=== PATIENT | female | born 1965 | race Caucasian/White ===

== ENCOUNTER 2017-03-03 04:33 | Emergency (ER) | payer SELFPAY ==
--- NOTE | 2017-03-03 04:59 | Emergency Department Record ---
History of Present Illness - General Chief complaint: Eye Problem Stated complaint: LEFT EYE MASS PROBLEMS Time Seen by Provider: 03/03/17 04:36 Source: Patient Mode of Arrival: Ambulatory Limitations: No limitations - History of Present Illness Initial comments: 52 yo female from [place] presents with pain behind her left eye. She states she has a known mass that was first found 20 years ago. The mass causes fairly constant pain that has been ongoing for years. She states it is half dollar size. The pain is typically worse at night. The pain has been worse the last month. She was not able to sleep tonight. She flew to [place] in the last week for a family . The pain intensified at that time. The pain is a constant ache behind the eye. She states in [place] she was supposed to have yearly MRI's. She was not always able to do this. Her last MRI was in the last 2 years in [facility]. She states she has daily migraines. She requests no narcotics as she is a recovering addict. Her mother has a history of a meningioma. chief complaint: Eye pain, Other -: Year(s) Onset Description: Gradual Location: Left eye Place: Home If Injury: None Severity: Severe If Pain, Quality: Aching Consistency: Constant Context: Other (Possible masss) Associated Symptoms: Headache Treatments Prior to Arrival: Ice - Related Data Previous Rx's Medication Instructions Recorded Amoxicillin 500Mg Capsule [Amoxil] 500 mg PO TID #30 tab 03/03/17 Budesonide [Rhinocort Allergy] 5 ml NS BID #1 spray.pump 03/03/17 Allergies Allergy/AdvReac Type Severity Reaction Status Date / Time prochlorperazine Allergy PT UNSURE Verified 03/03/17 04:46 [From Compazine] OF REACTION Review of Systems Constitutional: Denies: Chills, Fever, Malaise, Weakness Eyes: Reports: Eye pain, Photophobia. Denies: Eye discharge, Vision change ENT: Denies: Congestion, Throat pain Respiratory: Denies: Cough, Dyspnea, Hemoptysis, Stridor, Wheezes Cardiovascular: Denies: Chest pain, Palpitations, Syncope Endocrine: Denies: Fatigue, Polydipsia, Polyuria Gastrointestinal: Reports: Nausea, Vomiting. Denies: Abdominal pain, Constipation, Diarrhea Genitourinary: Denies: Dysuria Skin: Denies: Bruising, Change in color, Rash Neurological: Reports: Headache. Denies: Confusion, Numbness, Tingling, Tremors , Vertigo, Weakness Psychiatric: Denies: Anxiety Hematological/Lymphatic: Denies: Blood Clots, Easy bleeding, Easy bruising, Swollen glands Physical Exam - General General Appearance: Alert, Oriented x3, Cooperative, No acute distress Limitations: No limitations - Head Head exam: Atraumatic, Normocephalic, Normal inspection - Eye Eye exam: Normal appearance, PERRL, EOMI. negative: Conjunctival injection, Nystagmus, Periorbital swelling, Periorbital tenderness, Scleral icterus - ENT ENT exam: Normal exam, Mucous membranes moist, Normal orophraynx Ear exam: Normal external inspection Nasal Exam: Normal inspection Mouth exam: Normal external inspection - Neck Neck exam: Normal inspection, Full ROM. negative: Meningismus, Tenderness - Respiratory Respiratory exam: Normal lung sounds bilaterally. negative: Respiratory distress - Cardiovascular Cardiovascular Exam: Regular rate, Normal rhythm, Normal heart sounds Peripheral Pulses: 2+: Radial (R), Radial (L) - GI/Abdominal GI/Abdominal exam: Soft. negative: Tenderness - Rectal Rectal exam: Deferred - exam: Deferred - Extremities Extremities exam: Normal inspection, Full ROM, Normal capillary refill. negative: Tenderness - Back Back exam: Reports: Normal inspection, Full ROM. Denies: Muscle spasm, Rash noted, Tenderness - Neurological Neurological exam: Alert, CN II-XII intact, Normal gait, Oriented X3. negative : Altered, Motor sensory deficit - Psychiatric Psychiatric exam: Normal affect, Normal mood. negative: Agitated, Anxious - Skin Skin exam: Dry, Intact, Normal color, Warm Course - Reevaluation(s) Reevaluation #1: The pain has resolved prior to medication of the patient She states this is a typical pattern but tonight the pain lasted longer The pain comes on and then will spontaneously stop This has been the pattern for several years. 03/03/17 05:18 03/03/17 05:19 The patient is unsure where prior imaging was performed She states it could be [facility] or [facility] in [facility] was called multiple times without medical record responding. The nurse steel fabricating supervisor was not responsive as well. 03/03/17 05:30 [facility] does not have any records on the patient [facility] records continues to not respond. 03/03/17 05:[address] scan report from [facility] demonstrated no mass, hemorrhage or obstructive hydrocephalus. There is patchy paranasal sinus disease. left frontoethmoidal recess as well as the left maxillary sinus I discussed the CT findings. No acute mass or emergent process identified for her chronic pain. Given the sinus involvement she may benefit for antibiotics and steroids She will be provided a copy to take for follow up in [place] Disposition Disposition: Discharge Clinical Impression: Headache, Sinusitis Disposition: Home, Self-Care Condition: (1) Good Instructions: Sinusitis (ED) Additional Instructions: Call for close follow up when you return to [place] Return or seek medical care if the pain returns or any new concerns Prescriptions: Amoxicillin 500Mg Capsule [Amoxil] 500 mg PO TID #30 tab Budesonide [Rhinocort Allergy] 5 ml NS BID #1 spray.pump Forms: Patient Portal Access Time of Disposition: 05:37 Quality - Quality Measures Quality Measures: N/A - Blood Pressure Screening Does Patient Have Any of the Following: No Blood Pressure Classification: Pre-Hypertensive BP Reading Systolic Measurement: 116 Diastolic Measurement: 82 Screening for High Blood Pressure: < Pre-Hypertensive BP, F/U Documented > [ G8950] Pre-Hypertensive Follow-up Interventions: Referral to alternative/primary care provider.
[2017-03-03] MEDS ORDERED: METOCLOPRAMIDE HCL 10 MG/2 ML VIAL IVP ONE (05:00)
[2017-03-03] MEDS ORDERED: DIPHENHYDRAMINE HCL IV 50 MG/ML VIAL IVP ONE (05:00)
[2017-03-03] MEDS ORDERED: 0.9 % SODIUM CHLORIDE 1,000 ML BAG IV ONE (05:00)
[2017-03-03] MEDS ORDERED: ACETAMINOPHEN 1,000 MG/100 ML BTL IVPB ONE (05:00)
--- NOTE | 2017-03-04 07:43 | CT SCAN REPORT ---
EXAM: CT OF THE BRAIN WITHOUT CONTRAST HISTORY: HEADACHE. TECHNIQUE: CT of the brain without contrast was obtained. Comparison: None. FINDINGS: The globes are intact. Mucosal thickening of the maxillary sinuses, ethmoid air cells, and sphenoid sinuses. No displaced or depressed skull fracture. No intra or extraaxial hemorrhage. CT is limited for the evaluation of acute infarct. No CT evidence for large or territorial acute infarct. No mass, mass effect, or midline shift. IMPRESSION: 1. NEGATIVE FOR ACUTE INTRACRANIAL ABNORMALITY. 2. PARANASAL SINUSITIS. JOB NUMBER: [id number] MTDD
== END 2017-03-03 05:46 | disposition home or self-care (01) ==
LOC: ER 04:33
DX: J01.00 Acute maxillary sinusitis, unspecified (principal); R51 Headache; H57.12 Ocular pain, left eye
CPT/HCPCS: 70450; 96374; 96375; 99284

== ENCOUNTER 2017-07-04 02:13 | Emergency (ER) | payer SELFPAY ==
[2017-07-04] MEDS: IPRATROPIUM/ALBUTEROL (0.5MG/3MG) NEB INH ONE (02:36)
[2017-07-04 02:47] LABS: INFLUENZA A NEGATIVE (NEGATIVE); INFLUENZA B NEGATIVE (NEGATIVE)
--- NOTE | 2017-07-04 02:51 | Emergency Department Record ---
History of Present Illness - General Chief Complaint: Cough Stated Complaint: COUGH Time Seen by Provider: 07/04/17 02:22 Source: Patient Mode of Arrival: Ambulatory Limitations: No limitations - History of Present Illness Initial Comments: pt has had 2 days of coughing, fever, sweats, chills, congestion Complaint: Cough, Fever, Nasal congestion, Rhinorrhea, Sore throat Onset/Timin -: Days(s) Severity: Mild Consistency: Constant Improves With: Nothing Context: Sick contacts Associated Symptoms: Chills, Cough, Fever, Nasal congestion, Rhinorrhea, Sore throat - Related Data Previous Rx's Medication Instructions Recorded Azithromycin [Zithromax] 250 mg PO DAILY #4 tab 07/04/17 Benzonatate [Tessalon] 1 cap PO Q8H PRN #14 cap 07/04/17 Allergies Allergy/AdvReac Type Severity Reaction Status Date / Time prochlorperazine Allergy PT UNSURE Verified 03/03/17 04:46 [From Compazine] OF REACTION Travel Screening - Travel/Exposure Within Last 30 Days Have you traveled within the last 30 days?: No - Travel/Exposure Within Last Year Have you traveled outside the [place] in the last year?: No - Additonal Travel Details Have you been exposed to anyone with a communicable illness?: No - Travel Symptoms Symptom Screening: None Review of Systems Reviewed: No additional complaints except as noted below Constitutional: Reports: As per HPI. Denies: Chills, Fever, Malaise, Night sweats, Weakness, Weight change Eyes: Reports: As per HPI. Denies: Eye discharge, Eye pain, Photophobia, Vision change ENT: Reports: As per HPI, Congestion, Throat pain. Denies: Dental pain, Ear pain, Epistaxis, Hearing loss Respiratory: Reports: As per HPI, Cough. Denies: Dyspnea, Hemoptysis, Stridor, Wheezes Cardiovascular: Reports: As per HPI. Denies: Arrhythmia, Chest pain, Dyspnea on exertion, Edema, Murmurs, Orthopnea, Palpitations, Paroxysmal nocturnal dyspnea, Rheumatic Fever, Syncope Endocrine: Reports: As per HPI. Denies: Fatigue, Heat or cold intolerance, Polydipsia, Polyuria Gastrointestinal: Reports: As per HPI. Denies: Abdominal pain, Constipation, Diarrhea, Hematemesis, Hematochezia, Melena, Nausea, Vomiting Genitourinary: Reports: As per HPI. Denies: Abnormal menses, Discharge, Dyspareunia, Dysuria, Frequency, Hematuria, Incontinence, Retention, Urgency Musculoskeletal: Reports: As per HPI. Denies: Arthralgia, Back pain, Gout, Joint swelling, Myalgia, Neck pain Skin: Reports: As per HPI. Denies: Bruising, Change in color, Change in hair/ nails, Lesions, Pruritus, Rash Neurological: Reports: As per HPI. Denies: Abnormal gait, Confusion, Headache, Numbness, Paresthesias, Seizure, Tingling, Tremors, Vertigo, Weakness Psychiatric: Reports: As per HPI. Denies: Anxiety, Auditory hallucinations, Depression, Homicidal thoughts, Suicidal thoughts, Visual hallucinations Hematological/Lymphatic: Reports: As per HPI. Denies: Anemia, Blood Clots, Easy bleeding, Easy bruising, Swollen glands Past Medical History - SOCIAL HISTORY Smoking Status: Former smoker Alcohol Use: None Drug Use: None - RESPIRATORY Hx Respiratory Disorders: No - CARDIOVASCULAR Hx Cardio Disorders: No - NEURO Hx Neuro Disorders: Yes Hx Headaches: Yes - GI Hx GI Disorders: No - Hx Genitourinary Disorders: No - ENDOCRINE Hx Endocrine Disorders: No - MUSCULOSKELETAL Hx Musculoskeletal Disorders: No - PSYCH Hx Psych Problems: No - HEMATOLOGY/ONCOLOGY Hx Hematology/Oncology Disorders: No Family Medical History Any Significant Family History?: No Physical Exam - General General Appearance: Alert, Oriented x3, Cooperative, Mild distress - Head Head exam: Normal inspection - Eye Eye exam: Normal appearance, PERRL, EOMI Pupils: Normal accommodation - ENT ENT exam: Normal exam, Mucous membranes moist, Normal external ear exam, Normal orophraynx Ear exam: Normal external inspection. negative: External canal tenderness Nasal Exam: Discharge. negative: Sinus tenderness Mouth exam: Normal external inspection, Tongue normal Teeth exam: Normal inspection. negative: Dental caries Throat exam: Tonsillar erythema. negative: Tonsillar exudate - Neck Neck exam: Normal inspection, Full ROM. negative: Tenderness - Respiratory Respiratory exam: negative: Respiratory distress - Cardiovascular Cardiovascular Exam: Normal rhythm, Normal heart sounds, Systolic murmur, Tachycardia - GI/Abdominal GI/Abdominal exam: Soft, Normal bowel sounds. negative: Tenderness - Rectal Rectal exam: Deferred - exam: Deferred - Extremities Extremities exam: Normal inspection, Full ROM, Normal capillary refill. negative: Tenderness - Back Back exam: Reports: Normal inspection, Full ROM. Denies: Muscle spasm, Rash noted, Tenderness - Neurological Neurological exam: Alert, CN II-XII intact, Normal gait, Oriented X3 - Psychiatric Psychiatric exam: Normal affect, Normal mood - Skin Skin exam: Dry, Intact, Normal color, Warm Course Vital Signs 07/04/17 07/04/17 02:15 02:36 Temperature 98.8 F Pulse Rate 125 H 86 Respiratory 20 16 Rate Blood Pressure 111/89 Pulse Ox 97 Disposition Disposition: Discharge Clinical Impression: Heart murmur Pneumonia Qualifiers: Pneumonia type: due to unspecified organism Laterality: bilateral Lung location : lower lobe of lung Qualified Code(s): J18.1 - Lobar pneumonia, unspecified organism Disposition: Home, Self-Care Condition: (1) Good Instructions: Pneumonitis (ED) Additional Instructions: follow up with family doctor. return sooner if worse. tylenol and motrin as needed. Prescriptions: Azithromycin [Zithromax] 250 mg PO DAILY #4 tab Benzonatate [Tessalon] 1 cap PO Q8H PRN #14 cap PRN Reason: Cough Forms: Patient Portal Access, Return to Work/School Quality - Quality Measures Quality Measures: N/A - Blood Pressure Screening Does Patient Have Any of the Following: No Blood Pressure Classification: Pre-Hypertensive BP Reading Systolic Measurement: 111 Diastolic Measurement: 89 Screening for High Blood Pressure: < Pre-Hypertensive BP, F/U Documented > [ G8950] Pre-Hypertensive Follow-up Interventions: Follow-up with rescreen every year.
[2017-07-04] MEDS: AZITHROMYCIN 500 MG TABLET PO ONE (03:06)
[2017-07-04] MEDS: BENZONATATE 100 MG CAPSULE PO ONE (03:07)
--- NOTE | 2017-07-05 09:07 | RADIOLOGY REPORT ---
EXAM: CHEST, TWO VIEWS HISTORY: COUGH AND SHORTNESS OF BREATH FOR TWO DAYS. TECHNIQUE: PA and lateral views of the chest were obtained. Comparison: None. FINDINGS: Mild torsion of the aorta. The heart size is within normal limits. The lungs appear expanded with no definite acute infiltrate seen. No pleural effusion or pneumothorax evident. Mild spurring in the spine. Faint nodular density overlying the right base on the frontal view not identified as a nodule on the lateral view and may just be a prominent nipple shadow. This could be confirmed with follow-up PA and bilateral oblique views with nipple markers applied if clinically warranted. IMPRESSION: 1. MILD TORSION OF THE AORTA. 2. NO ACUTE INFILTRATE EVIDENT. 3. FAINT NODULAR DENSITY RIGHT BASE ON THE FRONTAL VIEW IS PROBABLY JUST A PROMINENT NIPPLE SHADOW OR OVERLAPPING STRUCTURES. ADDITIONAL VIEWS DESCRIBED ABOVE COULD CONFIRM. JOB NUMBER: [id number] MTDD
== END 2017-07-04 03:10 | disposition home or self-care (01) ==
LOC: ER 02:13
DX: J18.1 Lobar pneumonia, unspecified organism (principal); R01.1 Cardiac murmur, unspecified; Z87.891 Personal history of nicotine dependence
CPT/HCPCS: 71046; 87400; 94640; 99283